=== PATIENT | male | born 1945 | race African-American/Black ===

== ENCOUNTER 2023-12-20 23:48 | Emergency (ER) | payer OTHER, MEDICAID ==
[~2023-12-20] VITALS: Ht 180.3 cm; Wt 77.1 kg
[2023-12-20 23:53] VITALS: TEMP 98.6
[2023-12-21 00:40] LABS: BASOPHILS # (AUTO) 0.1 K/uL (0.0-0.2); EOSINOPHILS # (AUTO) 0.3 K/uL (0.0-0.7); EOSINOPHILS % (AUTO) 4.4 % (0.0-6.0); HEMATOCRIT 29 % (39-51); HEMOGLOBIN 9.3 g/dL (13.5-17.5); LYMPHOCYTES # (AUTO) 2.2 K/uL (0.8-4.8); LYMPHOCYTES % (AUTO) 33.8 % (20.0-44.0); MEAN CORPUSCULAR HEMOGLOBIN 26 PG (26.0-33.0); MEAN CORPUSCULAR HGB CONC 32 g/dl (31.0-36.0); MEAN CORPUSCULAR VOLUME 82 fL (80-96); MONOCYTES # (AUTO) 0.7 K/uL (0.1-1.30); MONOCYTES % (AUTO) 10.6 % (2.0-12.0); NEUTROPHILS # (AUTO) 3.2 K/uL (1.8-8.9); NEUTROPHILS % (AUTO) 50.2 % (43.0-81.0); PLATELET COUNT (AUTO) 367 K/uL (150-450); RED BLOOD CELL COUNT(AUTO) 3.51 MIL/uL (4.5-6.0); RED CELL DISTRIBUTION WIDTH 15.7 % (11.5-15.0); WHITE BLOOD COUNT (AUTO) 6.4 K/uL (4.3-11.0)
[2023-12-21 00:53] LABS: D-DIMER 2.06 mg/L(FEU (0.17-0.50); INR 1.11 (0.91-1.10); PARTIAL THROMBOPLASTIN TIME 30.8 SEC (24.3-34.3); PROTHROMBIN TIME 11.7 SECS (9.2-11.1)
[2023-12-21 01:02] LABS: CALCIUM, SERUM 8.1 mg/dL (8.5-10.1); CARBON DIOXIDE 26 mmol/L (21-32); CHLORIDE 104 mmol/L (98-107); CREATININE 1.2 mg/dL (0.6-1.3); GLUCOSE 147 mg/dL (74-106); POTASSIUM 4.3 mmol/L (3.5-5.1); SODIUM SERUM 137 mmol/L (136-145); UREA NITROGEN, BLOOD 27 mg/dL (7-18)
[2023-12-21 01:16] LABS: ALANINE AMINOTRANSFERASE 18 U/L (12-78); ALBUMIN 2.5 g/dL (3.4-5.0); ALKALINE PHOSPHATASE 86 U/L (46-116); ASPARTATE AMINOTRANSFERASE 8 U/L (15-37); BILIRUBIN,DIRECT 0.1 mg/dL (0.0-0.2); BILIRUBIN,TOTAL 0.2 mg/dL (0.2-1.0); NT-PRO BNP 411 pg/mL (0-125); TOTAL PROTEIN, SERUM 7.8 g/dL (6.4-8.2)
[2023-12-21] MEDS ORDERED: IV NS 0.9% 250 ML IV ONE (01:45)
[2023-12-21] MEDS ORDERED: CT SWABBABLE VALVE TRANS SET 1 EA INFUS.SET MC ONE (01:45)
[2023-12-21] MEDS ORDERED: IOHEXOL-350 100 ML VIAL IV ONE (01:45)
[2023-12-21] MEDS ORDERED: AZITHROMYCIN 500 MG VIAL ONE (03:36)
[2023-12-21] MEDS ORDERED: CEFTRIAXONE 1GM BAG (ER ONLY) 50 ML IV ONE (03:36)
[2023-12-21] MEDS: CEFTRIAXONE 1GM BAG (ER ONLY) 50 ML IV ONE (03:45)
[2023-12-21] MEDS: AZITHROMYCIN 500 MG in IV D5W 250 ML IV ONE (04:20)
[2023-12-21 04:26] VITALS: BP 146/84; O2SAT 95
[2023-12-21] MEDS ORDERED: METRONIDAZOLE 500MG/ NS 100ML 100 ML IV ONE (05:05)
[2023-12-21] MEDS: FLAGYL/NS RTU 500 MG/100 ML PIGGYBACK IV ONE (05:50)
== END 2023-12-21 07:12 | disposition short-term general hospital (02) ==
LOC: ER 23:51
DX: R04.2 Hemoptysis (principal); R91.8 Other nonspecific abnormal finding of lung field; J18.9 Pneumonia, unspecified organism; I10 Essential (primary) hypertension; R41.82 Altered mental status, unspecified; Z20.822 Contact with and (suspected) exposure to COVID-19
CPT/HCPCS: 99285; 96365; 71275; 71045; 96367 ×2; 87426; 93005; 85025; 80048; 87040 ×2; 83605; 80076; 85378; 36415; 84484; 85730; 83880; J7050; J0456; J0696; Q9967; J7060